=== PATIENT | female | born 1995 | race Caucasian/White ===

== ENCOUNTER 2021-11-06 15:52 | Emergency (ER) | payer MEDICAID, SELFPAY ==
--- NOTE | 2021-11-06 16:39 | ED.GENADULT ---
HPI - General Adult General Chief complaint: Animal Bite Stated complaint: cat bite on face Time Seen by Provider: 11/06/21 16:39 Source: patient Mode of arrival: ambulatory Limitations: no limitations History of Present Illness HPI narrative: Patient is a 26 year old female presenting to the emergency department today after being bitten by a cat. Patient states that she was bitten by her friends cat, in the chin and face, multiple times, earlier today. Patient states that her friends cat is not up to date on its rabies vaccination. Patient denies any dizziness, lightheadedness, abdominal pain, nausea, vomiting, fever, chills, blurry vision, double vision, loss of vision, chest pain, difficulty breathing, shortness of breath, back pain, night sweats, pain with urination, increased urinary frequency, increased urinary urgency, blood in her urine or stool, syncope or a near syncopal episode, recent trauma or falls, bowel incontinence, bladder incontinence, bowel retention, bladder retention, or any other complaints at this time. MD complaint: cat bite Onset (ago): hour(s) Location: face Radiation: non-radiation Severity: mild Severity scale (1-10): 3 Quality: dull Pain Consistency: constant Relieving factors: none Exacerbating factors: none Associated symptoms: denies other symptoms Treatments prior to arrival: none Related Data Previous Rx's Medication Instructions Recorded clindamycin HCl 150 mg capsule 450 mg PO TID 7 Days #63 cap 11/06/21 sulfamethoxazole 800 1 tab PO BID 7 Days #14 tab 11/06/21 mg-trimethoprim 160 mg tablet (Bactrim DS) Allergies Allergy/AdvReac Type Severity Reaction Status Date / Time Cephalosporins Allergy Unknown rash Verified 11/06/21 17:16 [CEPHALOSPORINS] Penicillins [PENICILLINS] Allergy Unknown UNKNOWN Verified 11/06/21 17:16 cephalexin [From Keflex] Allergy Swelling Verified 11/06/21 17:16 cephalosporins Allergy Unknown swelling Uncoded 09/11/17 00:00 penicillins Allergy Unknown swelling Uncoded 09/11/17 00:00 Review of Systems Constitutional: Constitutional: Reports no additional constitutional complaints, Denies chills, Denies fever(s) and Denies night sweats Eyes: Eyes: Reports no additional eye complaints, Denies blurry vision, Denies change in vision, Denies diplopia, Denies eye discharge, Denies loss of vision and Denies eye pain ENT: Denies dizziness Cardiovascular: Cardiovascular: Reports no additional cardiovascular complaints, Denies chest pain, Denies lightheadedness, Denies Loss of Consciousness and Denies dyspnea Respiratory: Respiratory: Reports no additional respiratory complaints and Denies dyspnea Gastrointestinal: Gastrointestinal: Reports no additional gastrointestinal complaints, Denies abdominal pain, Denies melena, Denies hematochezia, Denies change in bowel habits and Denies change in stool character Genitourinary: Genitourinary: Denies hematuria, Denies urinary frequency, Denies dysuria, Denies urinary incontinence, Denies urinary hesitancy and Denies urinary urgency Musculoskeletal: Musculoskeletal: Reports no additional musculoskeletal complaints, Denies numbness and Denies tingling Integumentary/Breasts: Comments: cat bites to the chin Neurologic: Denies dizziness, Denies loss of vision, Denies numbness and Denies tingling Psychiatric: Psychiatric: Reports no additional psychiatric complaints Endocrine: Endocrine: Reports no additional endocrine complaints Hematologic/Lymphatic: Hematologic/Lymphatic: Reports no additional hematologic/lymphatic complaints Allergic/Immunologic: Allergic/Immunologic: Reports no additional allergic/immunologic complaints [facility] Past Medical History Attestation statement: The following information was validated with the patient. Source: old records reviewed Medical History Kidney disease Social History Social History Advance Directives: No Advance Directives Information Provided: No Physical Exam ED Vital Signs: Vital Signs - 24 hr 11/06/21 16:40 Temperature 97.8 F Pulse Rate 82 Respiratory Rate 17 Blood Pressure 144/76 H Pulse Oximetry 98 BMI result Body Mass Index 23.8 Const General: cooperative, no acute distress, alert and awake Nutritional Appearance: well nourished Orientation/consciousness: patient oriented x3 Limitations: no limitations HENMT Head: Yes normal to inspection and Yes atraumatic Ears: hearing grossly normal bilaterally and external ears normal General nose exam: Normal external nose present, no nasal discharge noted and no epistaxis Face and sinus: Yes normal facial exam, No abrasion and No laceration Mouth: Normal oral and palatal mucosa present, no drooling and no muffled voice Eyes General: appearance normal, both eyes and all related structures Periorbital: periorbital findings normal Eyelids: Yes eyelids normal Conjunctivae: conjunctivae normal Pupils: Equal, round and reactive pupils present EOM: EOMs intact bilaterally Neck Neck: Yes normal visual inspection, Yes full ROM and Yes no lymphadenopathy Chest Chest palpation & inspection: normal inspection of the chest Resp Effort & Inspection: normal respiratory effort and able to speak in complete sentences Auscultation: clear to auscultation bilaterally Cardio Rate: regular rate Rhythm: regular rhythm GI Inspection: Yes normal to inspection Skin Other: small puncture wounds to the patient's chin with no signs of infection and no evidence of a through and through bite Neuro General: patient oriented x3 and moves all extremities Cranial nerves: Yes Equal, round and reactive pupils present Cognition (Neuro): normal cognition Motor exam (neuro): 5/5 motor strength present throughout Sensory Exam: Normal double simultaneous stimulation for sensation Coordination: [id number]-tx-alda test normal Extrem General: Yes normal to inspection, Yes full ROM and Yes capillary refill normal Psych Appearance: grossly normal Mental Status: mental status grossly normal Affect: normal affect Attitude: cooperative Thought process: Normal thought process present Thought content: Normal thought content present Insight: Good insight present (Psych) Medical Decision Making MDM Narrative Medical decision making narrative: Patient is a 26 year old female presenting to the emergency department today with cat bites to the chin. Patient's physical exam showed multiple small punctures to the chin but no active bleeding or signs of infection. I explained my physical exam findings to the patient. I answered all questions asked by the patient. Patient received PO [place] and Ativan which she stated helped her symptoms significantly. Patient's rabies vaccination was given and series started. I stressed the importance of the patient taking her medication as prescribed. I stressed the importance of the patient following up with her primary care provider. I stressed the importance of the patient returning to the emergency department immediately if her symptoms were to worsen or if she were to develop any dizziness, shortness of breath, difficulty breathing, chest pain, blurry vision, loss of vision, nausea, vomiting, abdominal pain, fever, chills, back pain, or any other complaints. Patient verbalized agreement and understanding with this treatment plan and discharge. Differential Diagnosis Differential Diagnosis: cat bite Medical Records Medical records reviewed: Yes I reviewed the patient's medical records. Lab Data Lab results reviewed: Yes I reviewed the patient's lab results. Discharge Plan Discharge Clinical Impression: Bite by animal, Cat bite Patient Disposition: Home, Self-Care Instructions: Animal Bite (ED), Rabies (ED) Additional Instructions: Take your antibiotic to completion. Follow up with your primary care provider. Return to the emergency department immediately if your symptoms worsen or if you develop any dizziness, shortness of breath, difficulty breathing, chest pain, blurry vision, loss of vision, nausea, vomiting, abdominal pain, fever, chills, back pain, or any other complaints. Prescriptions: New clindamycin HCl 150 mg capsule 450 mg PO TID 7 Days Qty: 63 0RF sulfamethoxazole-trimethoprim [Bactrim DS] 800-160 mg tablet 1 tab PO BID 7 Days Qty: 14 0RF Referrals: Physician,None [Primary Care Provider] - 2 days (Follow up with your PCP. ) Print Language: Korean
[2021-11-06 16:40] VITALS: BP 144/76; PULSE 82; RESP 17; TEMP 36.6; O2SAT 98; BMI 23.8
[2021-11-06] MEDS: LORazepam 1 MG TABLET PO (17:16)
[2021-11-06] MEDS: HYDROcodone Bit/Acetam 5/325 TABLET 1 TAB PO (17:17)
[2021-11-06] MEDS: Rabies Immune Globulin/PF 1,500 UNIT/5 ML VIAL 1179.34 UNIT IM (17:51)
[2021-11-06] MEDS: Rabies Vaccine (PCEC)/PF 1 ML VIAL IM (17:51)
[2021-11-06] MEDS: Diphth,Pertus(ACell),Tet Adult 0.5 ML SYRINGE IM (17:53)
[2021-11-06] MEDS: Sulfamethox/Trimeth 800/160 TABLET 1 TAB PO (18:11)
[2021-11-06] MEDS: Clindamycin HCL 150 MG CAPSULE 450 MG PO (18:11)
== END 2021-11-06 18:28 | disposition home or self-care (01) ==
PROVIDERS: Emergency Provider Emergency Medicine
DX: S00.87XA Other superficial bite of other part of head, initial encounter (principal); W55.01XA Bitten by cat, initial encounter; Y93.9 Activity, unspecified; Y92.009 Unspecified place in unspecified non-institutional (private) residence as the place of occurrence of the external cause; Y99.9 Unspecified external cause status; Z79.899 Other long term (current) drug therapy
CPT/HCPCS: 90375; 90471; 90472; 90675; 90715; 96372; 99284

== ENCOUNTER 2021-11-10 11:28 | Outpatient (REF) | payer MEDICAID, SELFPAY | END 2021-11-10 11:29 | disposition home or self-care (01) | LOC: HO.MDS 11:28 | DX: Z29.14 Encounter for prophylactic rabies immune globulin (principal); S00.87XD Other superficial bite of other part of head, subsequent encounter; S11.95XD Open bite of unspecified part of neck, subsequent encounter; W55.01XD Bitten by cat, subsequent encounter; Z20.3 Contact with and (suspected) exposure to rabies | CPT/HCPCS: 90471; 90675 ==

== ENCOUNTER 2021-11-13 10:13 | Outpatient (REF) | payer MEDICAID, SELFPAY | END 2021-11-13 10:14 | disposition home or self-care (01) | LOC: HO.MDS 10:13 | DX: Z29.14 Encounter for prophylactic rabies immune globulin (principal); S00.87XD Other superficial bite of other part of head, subsequent encounter; S10.9 Superficial injury of unspecified part of neck; V00-Y99 External causes of morbidity; Z20.3 Contact with and (suspected) exposure to rabies | CPT/HCPCS: 90471; 90675 ==

== ENCOUNTER 2022-03-14 19:29 | Emergency (ER) | payer MEDICAID, SELFPAY ==
[2022-03-14 20:41] VITALS: BP 165/81; PULSE 79; RESP 16; TEMP 36.8; O2SAT 97; BMI 19.9
--- NOTE | 2022-03-14 21:04 | PC.NURSE ---
pt brought urine to triage room, pt was asked to sit outside the room so that this RN could finish triaging the current pt. pt sat with no issue, when this RN went to collect urine, pt stated, bro I cant wait, this is messed up pt urine was sent off to the lab. when this RN got back to triage/WR, registration reported that pt was crying, and demanded that he call 911. registration called security, pt outside at this time smoking a cigarette refusing to come in for charge nurse stating to treat her out there.
[2022-03-14 21:10] LABS: Appearance Urine CLEAR; Color Urine YELLOW; Glucose Urine UA NEG (NEG); Leukocyte Esterase Urine NEG (NEG); Nitrite Urine NEG (NEG); Urine Blood NEG (NEG); Urine Ketones NEG (NEG); Urine Protein NEG (NEG-TRACE)
--- NOTE | 2022-03-14 22:34 | PC.NURSE ---
Addendum entered by Tammy Moran RN 03/14/22 22:38: This event took place at 2100 Original Note: At approximately 0900 pt walked out of ER stating that she did not want to wait and that she no longer wanted to receive care here. She sat outside and called 911 multiple times. Security present. Pt educated on process of triage and ED workup. She refused to go back inside and receive care.
== END 2022-03-14 23:42 | disposition left against medical advice (07) ==
PROVIDERS: Emergency Provider Emergency Medicine
DX: L02.91 Cutaneous abscess, unspecified (principal); N18.9 Chronic kidney disease, unspecified; F17.210 Nicotine dependence, cigarettes, uncomplicated
CPT/HCPCS: 36415; 80053; 81003; 85025; 96365; 99282; 99283; 99284

== ENCOUNTER 2022-03-14 22:22 | Emergency (ER) | payer MEDICAID, SELFPAY ==
[2022-03-14 23:05] VITALS: BP 142/89; PULSE 78; RESP 18; TEMP 36.8; O2SAT 95; BMI 19.9
--- NOTE | 2022-03-14 23:07 | ED_ITS ---
HPI - General Adult General Chief complaint: Skin/Abscess/Foreign Body Stated complaint: infection Time Seen by Provider: 03/14/22 23:07 Source: patient Mode of arrival: ambulatory Limitations: no limitations History of Present Illness HPI narrative: Patient is a 26 year old female presenting to the emergency department today with an infection and feeling anxious. Patient states that she has been dealing with multiple abscesses over the last few days and they aren't getting better. Patient denies any dizziness, lightheadedness, abdominal pain, nausea, vomiting, fever, chills, blurry vision, double vision, loss of vision, chest pain, difficulty breathing, shortness of breath, back pain, night sweats, pain with urination, increased urinary frequency, increased urinary urgency, blood in her urine or stool, syncope or a near syncopal episode, recent trauma or falls, bowel incontinence, bladder incontinence, bowel retention, bladder retention, or any other complaints at this time. Onset (ago): day(s) Radiation: non-radiation Severity: mild Severity scale (1-10): 2 Quality: dull Pain Consistency: constant Relieving factors: none Exacerbating factors: none Associated symptoms: denies other symptoms Treatments prior to arrival: none Related Data Previous Rx's Medication Instructions Recorded clindamycin HCl 150 mg capsule 450 mg PO TID 7 days #63 caps 11/06/21 sulfamethoxazole 800 1 tab PO BID 7 days #14 tabs 11/06/21 mg-trimethoprim 160 mg tablet (Bactrim DS) doxycycline hyclate 100 mg tablet 100 mg PO BID 7 days #14 tabs 03/14/22 Allergies Allergy/AdvReac Type Severity Reaction Status Date / Time Cephalosporins Allergy Unknown rash Verified 11/06/21 17:16 [CEPHALOSPORINS] Penicillins [PENICILLINS] Allergy Unknown UNKNOWN Verified 11/06/21 17:16 cephalexin [From Keflex] Allergy Swelling Verified 11/06/21 17:16 cephalosporins Allergy Unknown swelling Uncoded 09/11/17 00:00 penicillins Allergy Unknown swelling Uncoded 09/11/17 00:00 Review of Systems Constitutional: Constitutional: Reports no additional constitutional complaints, Denies chills, Denies fever(s) and Denies night sweats Eyes: Eyes: Reports no additional eye complaints, Denies blurry vision, Denies change in vision, Denies diplopia, Denies eye discharge, Denies loss of vision and Denies eye pain ENT: Denies dizziness Cardiovascular: Cardiovascular: Reports no additional cardiovascular complaints, Denies chest pain, Denies lightheadedness, Denies Loss of Consciousness and Denies dyspnea Respiratory: Respiratory: Reports no additional respiratory complaints and Denies dyspnea Gastrointestinal: Gastrointestinal: Reports no additional gastrointestinal complaints, Denies abdominal pain, Denies melena, Denies hematochezia, Denies change in bowel habits and Denies change in stool character Genitourinary: Genitourinary: Denies hematuria, Denies urinary frequency, Denies dysuria, Denies urinary incontinence, Denies urinary hesitancy and Denies urinary urgency Musculoskeletal: Musculoskeletal: Reports no additional musculoskeletal complaints, Denies numbness and Denies tingling Integumentary/Breasts: Comments: multiple abscesses Neurologic: Denies dizziness, Denies loss of vision, Denies numbness and Denies tingling Psychiatric: Psychiatric: Reports no additional psychiatric complaints Endocrine: Endocrine: Reports no additional endocrine complaints Hematologic/Lymphatic: Hematologic/Lymphatic: Reports no additional hematologic/lymphatic complaints Allergic/Immunologic: Allergic/Immunologic: Reports no additional allergic/immunologic complaints PMFSH Past Medical History Attestation statement: The following information was validated with the patient. Source: old records reviewed Medical History Kidney disease Social History Social History Advance Directives: No Advance Directives Information Provided: Yes Physical Exam ED Vital Signs: Vital Signs - 24 hr 03/14/22 23:05 Temperature 98.2 F Pulse Rate 78 Respiratory Rate 18 Blood Pressure 142/89 H Pulse Oximetry 95 Oxygen Delivery Method Room Air BMI result Body Mass Index 19.9 Const General: cooperative, no acute distress, alert and awake Nutritional Appearance: well nourished Orientation/consciousness: patient oriented x3 Limitations: no limitations HENMT Head: Yes normal to inspection and Yes atraumatic Ears: hearing grossly normal bilaterally and external ears normal General nose exam: Normal external nose present, no nasal discharge noted and no epistaxis Face and sinus: Yes normal facial exam, No abrasion and No laceration Mouth: Normal oral and palatal mucosa present, no drooling and no muffled voice Eyes General: appearance normal, both eyes and all related structures Periorbital: periorbital findings normal Eyelids: Yes eyelids normal Conjunctivae: conjunctivae normal Pupils: Equal, round and reactive pupils present EOM: EOMs intact bilaterally Neck Neck: Yes normal visual inspection, Yes full ROM and Yes no lymphadenopathy Chest Chest palpation & inspection: normal inspection of the chest Resp Effort & Inspection: normal respiratory effort and able to speak in complete sentences Auscultation: clear to auscultation bilaterally Cardio Rate: regular rate Rhythm: regular rhythm GI Inspection: Yes normal to inspection Skin Other: small abscess to the left medial thigh and left medial calf, no active bleeding, no area of fluctuance to incise Neuro General: patient oriented x3 and moves all extremities Cranial nerves: Yes Equal, round and reactive pupils present Cognition (Neuro): normal cognition Motor exam (neuro): 5/5 motor strength present throughout Sensory Exam: Normal double simultaneous stimulation for sensation Coordination: [id number]-ld-bjcj test normal Extrem General: Yes normal to inspection, Yes full ROM and Yes capillary refill normal Psych Appearance: grossly normal Mental Status: mental status grossly normal Affect: normal affect Attitude: cooperative Thought process: Normal thought process present Thought content: Normal thought content present Insight: Good insight present (Psych) Medical Decision Making MDM Narrative Medical decision making narrative: Patient is a 26 year old female presenting to the emergency department today with an infection and feeling anxious. Patient's physical exam showed multiple abscesses to the left lower extremity but was otherwise unremarkable. Patient's blood work was unremarkable. Upon arrival in the department today, patient was extremely agitated and made a large scene, pulling her pants down in the waiting room and leaving the premises to call an ambulance and request to be brought back to the main ED, faster. Multiple security guards and police had to be involved in this patient's case. I explained my physical exam findings as well as all test results to the patient. I answered all questions asked by the patient. Patient received PO Ativan and IV Doxycycline which she stated helped her symptoms significantly. I stressed the importance of the patient taking her medication as prescribed. I stressed the importance of the patient following up with her primary care provider. I stressed the importance of the patient retu rning to the emergency department immediately if her symptoms were to worsen or if she were to develop any dizziness, shortness of breath, difficulty breathing, chest pain, blurry vision, loss of vision, nausea, vomiting, abdominal pain, fever, chills, back pain, or any other complaints. Patient verbalized agreement and understanding with this treatment plan and discharge. Differential Diagnosis Differential Diagnosis: Abscess Medical Records Medical records reviewed: Yes I reviewed the patient's medical records. Lab Data Lab results reviewed: Yes I reviewed the patient's lab results. Result diagrams: 03/14/22 23:21 03/14/22 23:21 Labs: Lab Results 03/14/22 03/14/22 Range/Units 23:21 23:21 WBC 8.2 (4.8-10.8) X10*3/uL RBC 3.88 L (4.20-5.50) X10*6/uL Hgb 11.7 L (12.0-16.0) g/dl Hct 34.4 L (37.0-47.0) % MCV 88.7 (80.0-98.0) fL MCH 30.2 (27.0-33.0) pg MCHC 34.0 (31.0-35.0) g/dl RDW 12.6 (11.0-16.0) % Plt Count 276 (160-400) X10*3/uL MPV 10.1 (9.4-12.3) fL Immature Gran % (Auto) 0.2 (0.0-0.4) % Neut % (Auto) 69.4 (45-73) % Lymph % (Auto) 23.1 (20-40) % [place] % (Auto) 6.0 (2-11) % Eos % (Auto) 0.6 (0-4) % Baso % (Auto) 0.7 (0-2) % Lymph # (Auto) 1.9 (1.2-4.9) X10*3/uL [place] # (Auto) 0.5 (0.1-1.2) X10*3/uL Eos # (Auto) 0.1 (0.0-0.4) X10*3/uL Baso # (Auto) 0.1 (0.0-0.2) X10*3/uL Abs Immat Gran (auto) 0.02 (0.00-0.03) X10*3/uL Absolute Neuts (auto) 5.7 (2.0-8.3) x10*3/uL Absolute Nucleated RBC 0.000 (0.0-0.012) X10*3/uL Nucleated RBC % (auto) 0.0 (0.0-0.2) /100WBC Sodium 137 (135-145) mmol/L Potassium 3.9 (3.3-5.1) mmol/L Chloride 106 (96-108) mmol/L Carbon Dioxide 24 (22-29) mmol/L Anion Gap 11 L (12-20) BUN 6 L (9-16) mg/dL Creatinine 0.71 (0.5-1.4) mg/dL Estim Creat Clear Calc 92.1 Estimated GFR > 60 Random Glucose 100 (60-115) mg/dL Calcium 9.3 (8.4-10.2) mg/dL Total Bilirubin 0.3 (0.0-1.0) mg/dL AST 21 (5-31) U/L ALT 28 (0-31) U/L Alkaline Phosphatase 74 (39-117) U/L Total Protein 7.3 (6.5-8.0) g/dL Albumin 4.5 (3.5-5.0) g/dL Discharge Plan Discharge Clinical Impression: Abscess Patient Disposition: Home, Self-Care Instructions: Abscess (ED) Additional Instructions: Follow up with your primary care provider. Return to the emergency department immediately if your symptoms worsen or if you develop any dizziness, shortness of breath, difficulty breathing, chest pain, blurry vision, loss of vision, nausea, vomiting, abdominal pain, fever, chills, back pain, or any other complaints. Prescriptions: New doxycycline hyclate 100 mg tablet 100 mg PO BID 7 Days Qty: 14 0RF No Action clindamycin HCl 150 mg capsule 450 mg PO TID 7 Days Qty: 63 0RF sulfamethoxazole-trimethoprim [Bactrim DS] 800-160 mg tablet 1 tab PO BID 7 Days Qty: 14 0RF Print Language: Kiswahili
[2022-03-14] MEDS: LORazepam 1 MG TABLET 2 MG PO (23:20)
[2022-03-14 23:26] LABS: MANUAL DIFF FLAG NO
[2022-03-14 23:27] LABS: Basophils Absolute Auto 0.1 X10*3/uL (0.0-0.2); Basophils Percent Auto 0.7 % (0-2); Eosinophils Absolute Auto 0.1 X10*3/uL (0.0-0.4); Eosinophils Percent Auto 0.6 % (0-4); Hematocrit 34.4 % (37.0-47.0); Hemoglobin 11.7 g/dl (12.0-16.0); Imm Gran Abs Auto 0.02 X10*3/uL (0.00-0.03); Imm Gran Pct Auto 0.2 % (0.0-0.4); Lymphocytes Absolute Auto 1.9 X10*3/uL (1.2-4.9); Lymphocytes Percent Auto 23.1 % (20-40); Mean Corpuscular Hemoglobin 30.2 pg (27.0-33.0); Mean Corpuscular Volume 88.7 fL (80.0-98.0); Mean Platelet Volume 10.1 fL (9.4-12.3); Monocytes Absolute Auto 0.5 X10*3/uL (0.1-1.2); Neutrophils Absolute Auto 5.7 x10*3/uL (2.0-8.3); Neutrophils Percent Auto 69.4 % (45-73); Platelet Count 276 X10*3/uL (160-400); Red Blood Count 3.88 X10*6/uL (4.20-5.50); Red Cell Distribution Width 12.6 % (11.0-16.0); White Blood Count 8.2 X10*3/uL (4.8-10.8)
--- NOTE | 2022-03-14 23:30 | PC.NURSE ---
Upon entering the patient's room to greet them, patient sitting upright and talkative. Pt stated to Socorro Alas RN, you need to learn to ask the right questions and communicate, but you're just being a bitch. This RN calmed the patient and stated that provider ordered some bloodwork and medications to be given. Pt then stated I'm gonna tell you right now that I'm gonna refuse oral medicine. For the fastest and best treatment, I need an IV and fluids, and IV antibiotics. You either need to communicate that to the doctor, or get her back in here herself because I'm telling you now how this is gonna go. I have to be aggressive with getting care for myself. I want an IV, fluids, labs done, and then I want you to send me to [facility] to see Dr. Carnes for my kidney issues. I've had this problem before . Patient's demands made known to provider, who agreed to give the patient IV antibiotics and labs as requested, and will transfer only if appropriate. Patient agreed to this and stated I love you guys! You're awesome! and smiling. Pt does not appear to be in acute distress but is demanding and rude to some staff, including Socorro BALLARD & security. Patient on the phone intermittently with friends throughout visit so far. Will continue to monitor.
[2022-03-14] MEDS: Doxycycline Hyclate 100 MG in 0.9 % Sodium Chloride 250 ML 166.67 MG IV (23:36)
[2022-03-14 23:48] LABS: Alanine Aminotransferase 28 U/L (0-31); Albumin Level 4.5 g/dL (3.5-5.0); Alkaline Phosphatase 74 U/L (39-117); Anion Gap 11 (12-20); Aspartate Amino Transferase 21 U/L (5-31); Bilirubin Total 0.3 mg/dL (0.0-1.0); Blood Urea Nitrogen 6 mg/dL (9-16); Calcium 9.3 mg/dL (8.4-10.2); Carbon Dioxide 24 mmol/L (22-29); Chloride 106 mmol/L (96-108); Creatinine Clr Calc Pharmacy 92.1; Estimated Glomerular Filt Rate > 60; Glucose Random 100 mg/dL (60-115); Potassium 3.9 mmol/L (3.3-5.1); Sodium 137 mmol/L (135-145); Total Protein 7.3 g/dL (6.5-8.0)
--- NOTE | 2022-03-15 | PC.NURSE ---
Pt had left [facility] 03/14 and called EMS to br brought back into hospital by ambulance. PT demanding to be seen immediately. She was instructed to wait in the waiting area to be triage. She walked out of building calling [place] police who responded. Pt at that time pulling pants down to show area of redness to left inner thigh. [facility] on scene did not feel that she needed section 12 at that time. ED provider made aware of situation and she was brought back to EM area to be seen.
--- NOTE | 2022-03-15 01:06 | PC.NURSE ---
Patient has been on the phone all night while in [facility]. While attempting to provide discharge instructions, pt was asleep, refusing to open eyes for more than a few seconds. PERRLA upon examination. IV access removed from right AC. Per Provider (Beatriz CLARK), patient can remain in [facility] room to sleep for now. instructor ballroom dancing (Sharmin Prado) aware of this. Patient's respirations are even/unlabored. Skin pink warm & dry. No obvious distress.
--- NOTE | 2022-03-15 04:57 | PC.NURSE ---
RN to bedside in an attempt to review/provide pt with discharge paperwork. Pt easily arousable to light touch and verbal stimulation at which point she is awake, alert, pleasant and without distress noted. Pt allowed this RN to review discharge paperwork and verbalized understanding. Pt did however reports no one cleaned my wounds then stated No doctor like cleaned them, drained them or anything . This RN attempted to educate the patient on the course and need not all abscesses immediately requiring I&D adding that the provider prescribed antibiotics and antibiotics were given during her visit and she requested a MD to come to bedside for wound observation as she reports a dr never looked at it .
--- NOTE | 2022-03-15 07:35 | PC.NURSE ---
0530 Pt has been discharged since 010. Refusing to leave. Pt is rude, demanding. Swearing at staff. Explained to patient the plan of care multiple times and pt refused to listen. States I will tell you what you will do for me . Security to bedside to escort patient out of ED. Pt refusing to leave, refusing to sign dc paperwork. [employer] called by security to remove patient
== END 2022-03-15 05:40 | disposition home or self-care (01) ==
PROVIDERS: Physician Assistant Medical; Emergency Provider Emergency Medicine Emergency Medical Services
DX: L02.416 Cutaneous abscess of left lower limb (principal); N18.9 Chronic kidney disease, unspecified; F41.9 Anxiety disorder, unspecified
CPT/HCPCS: 36415; 80053; 85025; 96365; 99283; 99284